=== PATIENT | female | born 1990 | race American Indian/Alaskan Native ===

== ENCOUNTER 2017-01-02 08:58 | Inpatient (IN) | payer OTHER ==
[2017-01-02 09:45] LABS: BASO # 0.1 K/uL (0.0-0.2); BASO % 0.6 % (0.0-2.0); EOS # 0.2 K/uL (0.0-0.7); EOS % 1.5 % (0.0-4.0); HEMATOCRIT 38.6 % (34.0-47.0); LYMPH # 1.7 K/uL (1.0-4.3); LYMPH % 14.5 % (20.0-40.0); MEAN CELL VOLUME 87.8 fL (81.0-99.0); MEAN CORPUSCULAR HEMOGLOBIN 29.1 pg (27.0-31.0); MEAN CORPUSCULAR HGB CONC 33.1 g/dL (33.0-37.0); MEAN PLATELET VOLUME 8.7 fL (7.2-11.7); MONO # 0.9 K/uL (0.0-0.8); MONO % 7.7 % (0.0-10.0); WHITE BLOOD COUNT 11.7 K/uL (4.8-10.8)
[2017-01-02 09:52] LABS: CHLORIDE 97 mmol/L (98-107)
[2017-01-02 09:53] LABS: POTASSIUM 3.5 mmol/L (3.6-5.2); SODIUM 138 mmol/L (132-148)
[2017-01-02] MEDS ORDERED: Albuterol-Ipratrop 3 mg / 0.5 (3 ml) UD INH STA (09:55)
[2017-01-02] MEDS ORDERED: Sodium Chloride 0.9% 1,000 ML IV ONE (09:55)
[2017-01-02 09:56] LABS: ALB/GLOB RATIO 0.9 (1.0-2.1); ALKALINE PHOSPHATASE 85 U/L (38-126); ALT/SGPT 21 U/L (9-52); AST/SGOT 25 U/L (14-36); BLOOD UREA NITROGEN 8 mg/dL (7-17); CARBON DIOXIDE 26 mmol/L (22-30); GFR AFRICAN-AMERICAN > 60; GLUCOSE,RANDOM 83 mg/dL (65-105); TOTAL PROTEIN 9.7 g/dL (6.3-8.3)
[2017-01-02] MEDS ORDERED: Sodium Chloride 0.9% 1,000 ML ONE (09:56)
[2017-01-02] MEDS ORDERED: Albuterol-Ipratrop 3 mg / 0.5 (3 ml) UD ONE (09:56)
[2017-01-02 09:57] LABS: CALCIUM 9.6 mg/dl (8.6-10.4)
--- NOTE | 2017-01-02 10:21 | C.PDOC ---
History Of Present Illness 26 y/o female, currently breast-feeding her 1 year old, c/o cough with yellow and white sputum for 2 weeks, progressively getting worse, associated with SOB. Patient reports chills. Denies fevers. Denies smoking, travel, or sick contacts. Time Seen by Provider: 01/02/17 09:22 Chief Complaint (Nursing): Cough, Cold, Congestion History Per: Patient History/Exam Limitations: no limitations Onset/Duration Of Symptoms: Persistent Current Symptoms Are (Timing): Worse Associated Symptoms: Chills, Cough, Sputum. denies: Fever, Neck Pain, Vomiting Ear Symptoms: Bilateral: None Recent travel outside of the [place]: No Past Medical History Reviewed: Historical Data, Nursing Documentation, Vital Signs Vital Signs: Last Vital Signs Temp 98.2 F 01/02/17 15:00 Pulse 75 01/02/17 15:00 Resp 20 01/02/17 15:00 BP 107/67 01/02/17 15:00 Pulse Ox 96 01/02/17 15:00 - Medical History PMH: No Chronic Diseases Family History: States: Unknown Family Hx - Social History Hx Tobacco Use: No Hx Alcohol Use: No Hx Substance Use: No - Immunization History Hx Tetanus Toxoid Vaccination: No Hx Influenza Vaccination: No Hx Pneumococcal Vaccination: No Review Of Systems Constitutional: Positive for: Chills. Negative for: Fever Cardiovascular: Negative for: Palpitations Respiratory: Positive for: Cough, Shortness of Breath, Pleuritic Pain, Sputum Gastrointestinal: Negative for: Nausea, Vomiting Skin: Positive for: Lesions (left side bridge of nose). Negative for: Rash Physical Exam - Physical Exam Appears: Non-toxic, Other (thin female, appears uncomfortable, coughing persistently ) Skin: Warm, Dry, Other (pustule left side bridge of nose) Head: Atraumatic, Normacephalic Ear(s): Bilateral: Normal Oral Mucosa: Moist Throat: Normal, No Erythema, No Exudate Neck: Supple Chest: Symmetrical Cardiovascular: Rhythm Regular Respiratory: Decreased Breath Sounds (decreased breath sounds on right vs. left) , No Wheezing Gastrointestinal/Abdominal: Soft, No Tenderness Back: Normal Inspection Extremity: Normal ROM Neurological/Psych: Oriented x3, Normal Speech, Normal Cognition ED Course And Treatment - Laboratory Results Result Diagrams: 01/02/17 09:39 01/02/17 09:39 O2 Sat by Pulse Oximetry: 93 - Other Rad Chest X-Ray X-Ray: Viewed By Me, Read By Radiologist Interpretation: Accession No. : [id number]. Patient Name / ID : RODRIGO BURLESON / [id number]. Exam Date : 01/02/2017 10:03:23 ( Approved ). Study Comment : Sex / Age : F / 26Y. Creator : Viviana Stewart MD. Dictator : Viviana Stewart MD. Generating Station Mechanic : Proof Machine Operator : Viviana Stewart MD. Approver2 : Report Date : 01/02/2017 13:37:47. My Comment : . HISTORY: cough 2 weeks, sat 93, dec bs right side. COMPARISON: Chest x-ray performed . TECHNIQUE: Chest PA and lateral. FINDINGS: LUNGS: Biapical pleural thickening. Extensive opacity involving the right lower and middle lobe worrisome for pneumonia. Left basilar atelectasis/infiltrate. PLEURA: No significant pleural effusion identified. No definite pneumothorax . CARDIOVASCULAR: Heart size appears within normal limits. OSSEOUS STRUCTURES: No acute osseous abnormality identified. VISUALIZED UPPER ABDOMEN: Unremarkable. OTHER FINDINGS: None. IMPRESSION: Extensive opacity involving the right lower and middle lobe worrisome for pneumonia. Recommend follow-up to resolution. Left basilar atelectasis/infiltrate. Biapical pleural thickening. Medical Decision Making Medical Decision Making: CxR, labs, UA ordered and reviewed. IVFs, Zithromax, Rocephin given Case discussed with Dr. Carlisle who agrees upon plan of admission. Disposition Discussed With : Yadiel Carlisle Doctor Will See Patient In The: Hospital - Disposition Disposition: HOSPITALIZED Disposition Time: 12:16 Condition: GOOD - Clinical Impression Clinical Impression: Pneumonia, Pleural effusion - PA / CLASSIFICATION COUNSELOR / Resident Statement MD/DO has reviewed & agrees with the documentation as recorded. - Scribe Statement The provider has reviewed the documentation as recorded by the Scribe SM All medical record entries made by the Scribe were at my direction and personally dictated by me. I have reviewed the chart and agree that the record accurately reflects my personal performance of the history, physical exam, medical decision making, and the department course for this patient. I have also personally directed, reviewed, and agree with the discharge instructions and disposition.
[2017-01-02] MEDS ORDERED: cefTRIAXone IV 1 gm in Dextros 50 ML IV STA (10:34)
[2017-01-02] MEDS ORDERED: cefTRIAXone IV 1 gm in Dextros 50 ML IVPB ONE (10:43)
[2017-01-02] MEDS ORDERED: Azithromycin 500 MG in Sodium Chloride 0.9% 250 ML IVPB SCH (11:00)
[2017-01-02] MEDS ORDERED: Azithromycin 500 MG in Sodium Chloride 0.9% 250 ML IVPB STA (11:07)
[2017-01-02 12:50] LABS: RBC URINE 2 /hpf (0-3); URINE BILIRUBIN NEGATIVE (NEGATIVE); URINE BLOOD NEGATIVE (NEGATIVE); URINE COLOR Yellow (YELLOW); URINE GLUCOSE (UA) NORMAL (Normal); URINE KETONE NEGATIVE (NEGATIVE); URINE LEUKOCYTE ESTERASE TRACE Leu/uL (Negative); URINE PROTEIN NEGATIVE (NEGATIVE); WBC URINE 4 /hpf (0-5)
--- NOTE | 2017-01-02 13:40 | RAD ---
HISTORY: cough 2 weeks, sat 93, dec bs right side COMPARISON: Chest x-ray performed 07/16/13 TECHNIQUE: Chest PA and lateral FINDINGS: LUNGS: Biapical pleural thickening. Extensive opacity involving the right lower and middle lobe worrisome for pneumonia. Left basilar atelectasis/infiltrate. PLEURA: No significant pleural effusion identified. No definite pneumothorax . CARDIOVASCULAR: Heart size appears within normal limits. OSSEOUS STRUCTURES: No acute osseous abnormality identified. VISUALIZED UPPER ABDOMEN: Unremarkable. OTHER FINDINGS: None. IMPRESSION: Extensive opacity involving the right lower and middle lobe worrisome for pneumonia. Recommend follow-up to resolution. Left basilar atelectasis/infiltrate. Biapical pleural thickening.
--- NOTE | 2017-01-02 14:56 | CP.PCM.HP ---
History of Present Illness - History of Present Illness History of Present Illness: CC: cough, cold, congestion, shortness of breath HPI:26 y/o AA female with no significant PMH currently breast-feeding her 1 year old, c/o cough with yellow and white sputum for 2 weeks, progressively getting worse, associated with SOB, anorexia, malaise, generalized fatigue. Patient reports chills. Denies fevers. Denies smoking, travel, or sick contacts. Present on Admission - Present on Admission Any Indicators Present on Admission: Yes Review of Systems - Review of Systems Systems not reviewed;Unavailable: Acuity of Condition - Constitutional Constitutional: Chills, Fatigue, Lethargy, Malaise. absent: As Per HPI, Anorexia, Daytime Sleepiness, Excessive Sweating, Fever, Frequent Falls, Headache, Increased Appetite, Night Sweats, Snoring, Sleep Apnea, Weight Gain, Weight Loss, Weakness, Other - EENT Eyes: absent: As Per HPI, Blind Spots, Blurred Vision, Change in Vision, Decreased Night Vision, Diplopia, Discharge, Dry Eye, Exophthalmos, Floaters, Irritation, Itchy Eyes, Loss of Peripheral Vision, Pain, Photophobia, Requires Corrective Lenses, Sees Flashes, Spots in Vision, Tunnel Vision, Other Visual Disturbances, Loss of Vision, Other Ears: absent: As Per HPI, Decreased Hearing, Ear Discharge, Ear Pain, Tinnitus, Abnormal Hearing, Disequilibrium, Dizziness, Other Nose/Mouth/Throat: Nasal Congestion, Nasal Obstruction, Nasal Trauma, Sinus Pain , Sore Throat - Breasts Breasts: absent: As Per HPI, Change in Shape, Mass, Pain, Nipple Discharge, Nipple Inversion, Skin Changes, Swelling, Other - Cardiovascular Cardiovascular: absent: As Per HPI, Acrocyanosis, Chest Pain, Chest Pain at Rest , Chest Pain with Activity, Claudication, Diaphoresis, Dyspnea, Dyspnea on Exertion, Edema, Irregular Heart Rhythm, Pain Radiating to Arm/Neck/Jaw, Leg Edema, Leg Ulcers, Lightheadedness, Orthopnea, Palpitations, Paroxysmal Nocturnal Dyspnea, Pedal Edema, Radiating Pain, Rapid Heart Rate, Slow Heart Rate, Syncope, Other - Respiratory Respiratory: Cough, Dyspnea, Dyspnea on Exertion, Chest Congestion - Gastrointestinal Gastrointestinal: absent: As Per HPI, Abdominal Pain, Belching, Bloating, Change in Bowel Habits, Change in Stool Character, Coffee Ground Emesis, Constipation, Cramping, Diarrhea, Dyspepsia, Dysphagia, Early Satiety, Excessive Flatus, Fecal Incontinence, Heartburn, Hematemesis, Hematochezia, Loose Stools, Melena, Nausea, Odynophagia, Temesmus, Vomiting, Other - Genitourinary Genitourinary: absent: As Per HPI, Change in Urinary Stream, Difficulty Urinating, Dysuria, Flank Pain, Hematuria, Pyuria, Nocturia, Urinary Incontinence, Urinary Frequency, Urinary Hesitance, Urinary Urgency, Voiding Freq/Small Amts, Freq UTI, Hx Renal/Bladder Calculi, Hx /Renal Surgery, Bladder Distension, Other - Musculoskeletal Musculoskeletal: absent: As Per HPI, Abnormal Gait, Arthralgias, Atrophy, Back Pain, Deformity, Joint Swelling, Limited Range of Motion, Loss of Height, Muscle Cramps, Muscle Weakness, Myalgias, Neck Pain, Numbness, Radiating Pain into Limb, Stiffness, Tingling, Other - Integumentary Integumentary: absent: As Per HPI, Acne, Alopecia, Bleeding Lesions, Change in Hair, Change in Nails, Change in Pigmentation, Changing Lesions, Dry Skin, Erythema, Furuncle, Hirsutism, Lesions, New Lesions, Non-Healing Lesions, Photosensitivity, Pruritus, Rash, Skin Pain, Skin Ulcer, Sores, Striae, Swelling , Unusual Bruising, Wounds, Jaundice, Other Past Patient History - Past Medical History & Family History Past Medical History?: No - Past Social History Smoking Status: Never Smoked - MUSCULOSKELETAL/RHEUMATOLOGICAL Hx Falls: No - PSYCHIATRIC Hx Substance Use: No - SURGICAL HISTORY Hx Surgeries: Yes Hx Section: Yes - ANESTHESIA Hx Anesthesia: No Hx Anesthesia Reactions: No Meds Allergies/Adverse Reactions: Allergies Allergy/AdvReac Type Severity Reaction Status Date / Time No Known Allergies Allergy Verified 01/02/17 09:05 Physical Exam - Constitutional Appears: No Acute Distress Additional comments: younge thin female apperas in mild distress, coughing - Head Exam Head Exam: ATRAUMATIC, NORMAL INSPECTION, NORMOCEPHALIC - Eye Exam Eye Exam: EOMI, Normal appearance, PERRL Pupil Exam: NORMAL ACCOMODATION, PERRL - ENT Exam ENT Exam: Mucous Membranes Moist, Normal Exam - Neck Exam Neck exam: Positive for: Normal Inspection - Respiratory Exam Respiratory Exam: Decreased Breath Sounds, Rhonchi, Wheezes - Cardiovascular Exam Cardiovascular Exam: REGULAR RHYTHM - GI/Abdominal Exam GI & Abdominal Exam: Normal Bowel Sounds, Soft. absent: Tenderness - Neurological Exam Neurological exam: Alert, CN II-XII Intact, Normal Gait, Oriented x3 - Psychiatric Exam Psychiatric exam: Anxious - Skin Skin Exam: Abrasion, Dry, Intact, Normal Color, Warm Additional comments: pustule on bridge of nose dry poor turgor Results - Vital Signs Recent Vital Signs: Last Vital Signs Temp 98.7 F 01/02/17 13:40 Pulse 75 01/02/17 13:40 Resp 20 01/02/17 13:40 BP 103/66 01/02/17 13:40 Pulse Ox 96 01/02/17 13:40 - Labs Result Diagrams: 01/03/17 07:08 01/03/17 07:08 Labs: Laboratory Results - last 24 hr 01/02/17 01/02/17 01/02/17 09:39 09:39 10:49 WBC 11.7 H RBC 4.40 Hgb 12.8 D Hct 38.6 MCV 87.8 MCH 29.1 MCHC 33.1 RDW 13.0 Plt Count 246 MPV 8.7 Neut % (Auto) 75.7 H Lymph % (Auto) 14.5 L [place] % (Auto) 7.7 Eos % (Auto) 1.5 Baso % (Auto) 0.6 Neut # 8.9 H Lymph # 1.7 [place] # 0.9 H Eos # 0.2 Baso # 0.1 Sodium 138 Potassium 3.5 L Chloride 97 L Carbon Dioxide 26 Anion Gap 18 BUN 8 Creatinine 0.5 L Est GFR ( Amer) > 60 Est GFR (Non-Af Amer) > 60 Random Glucose 83 Calcium 9.6 Total Bilirubin 2.0 H AST 25 ALT 21 Alkaline Phosphatase 85 Total Protein 9.7 H Albumin 4.6 Globulin 5.0 H Albumin/Globulin Ratio 0.9 L Urine Color Urine Clarity Urine pH Ur Specific [place] Urine Protein Urine Glucose (UA) Urine Ketones Urine Blood Urine Nitrate Urine Bilirubin Urine Urobilinogen Ur Leukocyte Esterase Urine WBC (Auto) Urine RBC (Auto) Ur Squamous Epith Cells Urine HCG, Qual Influenza Typ A,B (EIA) Negative for flu a/b 01/02/17 12:39 WBC RBC Hgb Hct MCV MCH MCHC RDW Plt Count MPV Neut % (Auto) Lymph % (Auto) [place] % (Auto) Eos % (Auto) Baso % (Auto) Neut # Lymph # [place] # Eos # Baso # Sodium Potassium Chloride Carbon Dioxide Anion Gap BUN Creatinine Est GFR ( Amer) Est GFR (Non-Af Amer) Random Glucose Calcium Total Bilirubin AST ALT Alkaline Phosphatase Total Protein Albumin Globulin Albumin/Globulin Ratio Urine Color Yellow Urine Clarity Clear Urine pH 6.0 Ur Specific [place] 1.008 Urine Protein Negative Urine Glucose (UA) Normal Urine Ketones Negative Urine Blood Negative Urine Nitrate Negative Urine Bilirubin Negative Urine Urobilinogen 2.0 H Ur Leukocyte Esterase Trace Urine WBC (Auto) 4 Urine RBC (Auto) 2 Ur Squamous Epith Cells 1 Urine HCG, Qual Negative Influenza Typ A,B (EIA) Assessment & Plan (1) Pleural effusion Status: Acute (2) Pneumonia Assessment and Plan: Extensive opacity involving the right lower and middle lobe worrisome for pneumonia. Left basilar atelectasis/infiltrate. PLEURA: No significant pleural effusion identified. No definite pneumothorax . Extensive opacity involving the right lower and middle lobe worrisome for pneumonia. Recommend follow-up to resolution. Left basilar atelectasis/infiltrate. Biapical pleural thickening. plan: CxR, labs, UA ordered and reviewed. IVFs, Zithromax, Rocephin given Status: Acute
[2017-01-02] MEDS: Potassium Chloride 20 mEq ER Tab PO SCH (17:54)
[2017-01-02] MEDS: Albuterol-Ipratrop 3 mg / 0.5 (3 ml) UD INH SCH (19:47)
[2017-01-03] MEDS: guaiFENesin 200 mg/10 ml Syrup UD PO PRN ×2 (00:43→20:21)
[2017-01-03] MEDS: Albuterol-Ipratrop 3 mg / 0.5 (3 ml) UD INH SCH ×4 (01:25→19:46)
[2017-01-03 07:24] LABS: BASO % 0.2 % (0.0-2.0); EOS % 0.4 % (0.0-4.0); HEMATOCRIT 35.3 % (34.0-47.0); LYMPH # 0.8 K/uL (1.0-4.3); LYMPH % 6.4 % (20.0-40.0); MEAN CELL VOLUME 88.1 fL (81.0-99.0); MEAN CORPUSCULAR HEMOGLOBIN 29.2 pg (27.0-31.0); MEAN CORPUSCULAR HGB CONC 33.1 g/dL (33.0-37.0); MEAN PLATELET VOLUME 8.9 fL (7.2-11.7); MONO # 0.6 K/uL (0.0-0.8); MONO % 4.8 % (0.0-10.0); PLATELET COUNT 253 K/uL (130-400); RED CELL DISTRIBUTION WIDTH 13.1 % (11.5-14.5); WHITE BLOOD COUNT 12.4 K/uL (4.8-10.8)
[2017-01-03 08:02] LABS: CHLORIDE 97 mmol/L (98-107)
[2017-01-03 08:03] LABS: POTASSIUM 4.1 mmol/L (3.6-5.2); SODIUM 136 mmol/L (132-148)
[2017-01-03 08:05] LABS: GFR AFRICAN-AMERICAN > 60
[2017-01-03 08:06] LABS: BLOOD UREA NITROGEN 5 mg/dL (7-17); CALCIUM 9.2 mg/dl (8.6-10.4); CARBON DIOXIDE 26 mmol/L (22-30); GLUCOSE,RANDOM 95 mg/dL (65-105)
[2017-01-03] MEDS: Enoxaparin 40 mg Syringe SC SCH (09:42)
[2017-01-03] MEDS: Potassium Chloride 20 mEq ER Tab PO SCH (09:42)
[2017-01-03] MEDS: Pantoprazole 40 mg EC Tab PO SCH (09:42)
[2017-01-03] MEDS: cefTRIAXone 2 GM in Sodium Chloride 0.9% 100 ML IVPB SCH (09:43)
[2017-01-03 09:49] LABS: NEUTROPHIL 88 % (50-75); TOTAL CELLS COUNTED 100
[2017-01-03] MEDS: Azithromycin 500 MG in Sodium Chloride 0.9% 250 ML IVPB SCH (12:00)
--- NOTE | 2017-01-03 22:53 | CP.PCM.PN ---
Subjective - Date & Time of Evaluation Date of Evaluation: 01/03/17 Time of Evaluation: 20:40 - Subjective Subjective: Pt seen and examined, still c/o chest wall pain, less cough, less shortness of breath Objective - Vital Signs/Intake and Output Vital Signs (last 24 hours): Temp Pulse Resp BP Pulse Ox 98.4 F 88 20 99/59 L 95 01/03/17 16:53 01/03/17 16:53 01/03/17 16:53 01/03/17 16:53 01/03/17 16:53 Intake and Output: 01/03/17 01/04/17 18:59 06:59 Intake Total 710 300 Balance 710 300 - Medications Medications: Current Medications Acetaminophen (Tylenol 325mg Tab) 650 mg PO Q6 PRN PRN Reason: Pain, moderate (4-7) Last Admin: 01/03/17 20:19 Dose: 650 mg Albuterol/Ipratropium (Duoneb 3 Mg/0.5 Mg (3 Ml) Ud) 3 ml INH RQ6 [facility] Last Admin: 01/03/17 19:46 Dose: 3 ml Enoxaparin Sodium (Lovenox) 40 mg SC DAILY [facility] Last Admin: 01/03/17 09:42 Dose: 40 mg Guaifenesin (Robitussin) 200 mg PO Q4H PRN PRN Reason: Cough and congestion Last Admin: 01/03/17 20:21 Dose: 200 mg Ceftriaxone Sodium 2 gm/ (Sodium Chloride) 100 mls @ 100 mls/hr IVPB DAILY [facility] Last Admin: 01/03/17 09:43 Dose: 100 mls/hr Azithromycin 500 mg/ Sodium (Chloride) 250 mls @ 250 mls/hr IVPB Q24H [facility] Last Admin: 01/03/17 12:00 Dose: 250 mls/hr Pantoprazole Sodium (Protonix Ec Tab) 40 mg PO DAILY [facility] Last Admin: 01/03/17 09:42 Dose: 40 mg Pneumococcal Polyvalent Vaccine (Pneumovax 23 Vaccine) 0.5 ml IM .ONCE ONE Stop: 01/05/17 10:01 - Labs Labs: 01/03/17 07:08 01/03/17 07:08 - Constitutional Appears: No Acute Distress - Head Exam Head Exam: ATRAUMATIC, NORMAL INSPECTION, NORMOCEPHALIC - Eye Exam Eye Exam: EOMI, Normal appearance, PERRL Pupil Exam: NORMAL ACCOMODATION, PERRL - ENT Exam ENT Exam: Mucous Membranes Moist - Respiratory Exam Respiratory Exam: Decreased Breath Sounds, Rales - Cardiovascular Exam Cardiovascular Exam: REGULAR RHYTHM, +S1, +S2. absent: Murmur - GI/Abdominal Exam GI & Abdominal Exam: Soft, Normal Bowel Sounds. absent: Tenderness - Neurological Exam Neurological Exam: Alert, Awake, CN II-XII Intact, Normal Gait, Oriented x3 - Psychiatric Exam Psychiatric exam: Normal Affect, Normal Mood Assessment and Plan (1) Pleural effusion Status: Acute (2) Pneumonia Assessment & Plan: continue antibiotics Status: Acute
[2017-01-04] MEDS: Albuterol-Ipratrop 3 mg / 0.5 (3 ml) UD INH SCH ×4 (01:30→19:17)
[2017-01-04] MEDS: Enoxaparin 40 mg Syringe SC SCH ×2 (10:18→10:20)
[2017-01-04] MEDS: cefTRIAXone 2 GM in Sodium Chloride 0.9% 100 ML IVPB SCH ×2 (10:18→10:30)
[2017-01-04] MEDS: Pantoprazole 40 mg EC Tab PO SCH (10:18)
[2017-01-04] MEDS: Azithromycin 500 MG in Sodium Chloride 0.9% 250 ML IVPB SCH ×2 (10:28→11:30)
--- NOTE | 2017-01-04 15:28 | CP.PCM.CON ---
History of Present Illness - History of Present Illness History of Present Illness: Reason for consultation: Shortness of breath and cough 26-year-old female with no significant past medical history presented with 2 week history of cough productive of yellowish phlegm associated with worsening shortness of breath. Denies fevers chills, denies chest pain. Denies night sweats, denies weight loss, denies hemoptysis. Cough is bored during the day and at night and shortness of breath is mostly on exertion. Review of Systems - Review of Systems All systems: reviewed and no additional remarkable complaints except (Shortness of breath and cough) Past Patient History - Past Medical History & Family History Past Medical History?: No - Past Social History Smoking Status: Never Smoked - MUSCULOSKELETAL/RHEUMATOLOGICAL Hx Falls: No - PSYCHIATRIC Hx Substance Use: No - SURGICAL HISTORY Hx Surgeries: Yes Hx Section: Yes - ANESTHESIA Hx Anesthesia: No Hx Anesthesia Reactions: No Meds Allergies/Adverse Reactions: Allergies Allergy/AdvReac Type Severity Reaction Status Date / Time No Known Allergies Allergy Verified 01/02/17 09:05 - Medications Medications: Current Medications Acetaminophen (Tylenol 325mg Tab) 650 mg PO Q6 PRN PRN Reason: Pain, moderate (4-7) Last Admin: 01/03/17 20:19 Dose: 650 mg Albuterol/Ipratropium (Duoneb 3 Mg/0.5 Mg (3 Ml) Ud) 3 ml INH RQ6 [facility] Last Admin: 01/04/17 13:32 Dose: Not Given Enoxaparin Sodium (Lovenox) 40 mg SC DAILY [facility] Last Admin: 01/04/17 10:20 Dose: Not Given Guaifenesin (Robitussin) 200 mg PO Q4H PRN PRN Reason: Cough and congestion Last Admin: 01/03/17 20:21 Dose: 200 mg Ceftriaxone Sodium 2 gm/ (Sodium Chloride) 100 mls @ 100 mls/hr IVPB DAILY [facility] Last Admin: 01/04/17 10:30 Dose: Not Given Azithromycin 500 mg/ Sodium (Chloride) 250 mls @ 250 mls/hr IVPB Q24H [facility] Last Admin: 01/04/17 11:30 Dose: Not Given Pantoprazole Sodium (Protonix Ec Tab) 40 mg PO DAILY [facility] Last Admin: 01/04/17 10:18 Dose: 40 mg Pneumococcal Polyvalent Vaccine (Pneumovax 23 Vaccine) 0.5 ml IM .ONCE ONE Stop: 01/05/17 10:01 Physical Exam - Head Exam Head Exam: ATRAUMATIC, NORMOCEPHALIC - Eye Exam Eye Exam: Normal appearance - ENT Exam ENT Exam: Mucous Membranes Moist - Neck Exam Neck exam: Positive for: Normal Inspection - Respiratory Exam Respiratory Exam: Decreased Breath Sounds Additional comments: Patient has reduced breath sounds right base - Cardiovascular Exam Cardiovascular Exam: REGULAR RHYTHM - GI/Abdominal Exam GI & Abdominal Exam: Normal Bowel Sounds, Soft - Extremities Exam Extremities exam: Positive for: normal inspection - Neurological Exam Neurological exam: Alert, Oriented x3 Results - Vital Signs Recent Vital Signs: Last Vital Signs Temp 99.2 F 01/04/17 00:50 Pulse 88 01/04/17 00:50 Resp 20 01/04/17 00:50 BP 97/65 L 01/04/17 00:50 Pulse Ox 94 L 01/04/17 00:50 - Labs Result Diagrams: 01/03/17 07:08 01/03/17 07:08 Assessment & Plan (1) Pneumonia Status: Acute Comment: Chest x-ray consistent with right lower lung infiltrate. CAT scan of the chest without contrast. IV antibiotics. Follow-up culture sensitivity. Influenza negative
--- NOTE | 2017-01-04 18:11 | CT ---
PROCEDURE: CT Chest without contrast HISTORY: pleural effusion COMPARISON: None. TECHNIQUE: Contiguous axial images were obtained through the chest without intravenous contrast enhancement. Sagittal and coronal reconstructions were performed. Radiation dose (DLP): 147.6 mGy-cm. This CT exam was performed using one or more of the following dose reduction techniques: Automated exposure control, adjustment of the mA and/or kV according to patient size, and/or use of iterative reconstruction technique. FINDINGS: LUNGS: There is right middle and lower lobes consolidations contain air bronchogram suspicious for pneumonia versus aspiration. MEDIASTINUM: Unremarkable thoracic aorta. No aneurysm. Normal sized heart. Main pulmonary artery is mildly enlarged. No lymphadenopathy. Markedly dilated esophagus contains food debris cyst. Findings suspicious for achalasia or distal esophageal stricture versus school or dermal. PLEURA: There is a small size right pleural effusion seen. BONES: No fracture. No destructive lesion. UPPER ABDOMEN: Grossly unremarkable. OTHER FINDINGS: None. IMPRESSION: Markedly dilated esophagus contains food debris noted. The differential considerations include achalasia ,distal esophagus/ EG junction stenosis or scleroderma. Please correlate clinically. Large airspace consolidations contain air bronchogram noted at the right middle and lower lobes suspicious for pneumonia versus aspiration. Small right pleural effusion.
[2017-01-04] MEDS ORDERED: Clindamycin 600mg/50ml NS 600 MG/50 ML BAG IVPB SCH (19:00)
--- NOTE | 2017-01-04 21:18 | CP.PCM.PN ---
Subjective - Date & Time of Evaluation Date of Evaluation: 01/04/17 Time of Evaluation: 20:30 - Subjective Subjective: Pt is coughing, wheezing, afberile on antibiotics, she has no Iv access Objective - Vital Signs/Intake and Output Vital Signs (last 24 hours): Temp Pulse Resp BP Pulse Ox 98.5 F 74 20 97/63 L 96 01/04/17 15:00 01/04/17 15:00 01/04/17 15:00 01/04/17 15:00 01/04/17 15:00 Intake and Output: 01/04/17 01/05/17 18:59 06:59 Intake Total 200 Balance 200 - Medications Medications: Current Medications Acetaminophen (Tylenol 325mg Tab) 650 mg PO Q6 PRN PRN Reason: Pain, moderate (4-7) Last Admin: 01/03/17 20:19 Dose: 650 mg Albuterol/Ipratropium (Duoneb 3 Mg/0.5 Mg (3 Ml) Ud) 3 ml INH RQ6 [facility] Last Admin: 01/04/17 19:17 Dose: 3 ml Clindamycin HCl (Cleocin) 300 mg PO Q6H [facility] Enoxaparin Sodium (Lovenox) 40 mg SC DAILY [facility] Last Admin: 01/04/17 10:20 Dose: Not Given Guaifenesin (Robitussin) 200 mg PO Q4H PRN PRN Reason: Cough and congestion Last Admin: 01/03/17 20:21 Dose: 200 mg Ceftriaxone Sodium 2 gm/ (Sodium Chloride) 100 mls @ 100 mls/hr IVPB DAILY [facility] Last Admin: 01/04/17 10:30 Dose: Not Given Pantoprazole Sodium (Protonix Ec Tab) 40 mg PO DAILY [facility] Last Admin: 01/04/17 10:18 Dose: 40 mg Pneumococcal Polyvalent Vaccine (Pneumovax 23 Vaccine) 0.5 ml IM .ONCE ONE Stop: 01/05/17 10:01 - Labs Labs: 01/03/17 07:08 01/03/17 07:08 - Constitutional Appears: No Acute Distress - Head Exam Head Exam: ATRAUMATIC, NORMAL INSPECTION, NORMOCEPHALIC - Eye Exam Eye Exam: EOMI, Normal appearance, PERRL Pupil Exam: NORMAL ACCOMODATION, PERRL - Respiratory Exam Respiratory Exam: Decreased Breath Sounds, Rales, Wheezes - Cardiovascular Exam Cardiovascular Exam: REGULAR RHYTHM, +S1, +S2. absent: Murmur - GI/Abdominal Exam GI & Abdominal Exam: Soft, Normal Bowel Sounds. absent: Tenderness Assessment and Plan (1) Pleural effusion Status: Acute (2) Pneumonia Assessment & Plan: Chest x-ray consistent with right lower lung infiltrate. CAT scan of the chest without contrast. IV antibiotics. Follow-up culture sensitivity. Influenza negative Status: Acute
[2017-01-05] MEDS: Albuterol-Ipratrop 3 mg / 0.5 (3 ml) UD INH SCH ×4 (02:57→19:17)
[2017-01-05] MEDS ORDERED: Influenza Vaccine 60 mcg/0.5 mL SYR (4YR UP) IM ONE (10:00)
[2017-01-05] MEDS ORDERED: Pneumococcal 23-Valent Vaccine IM ONE (10:00)
[2017-01-05] MEDS: Pantoprazole 40 mg EC Tab PO SCH (10:18)
[2017-01-05] MEDS: Enoxaparin 40 mg Syringe SC SCH (10:18)
[2017-01-05] MEDS: cefTRIAXone 2 GM in Sodium Chloride 0.9% 100 ML IVPB SCH (10:21)
[2017-01-05 17:08] LABS: LEGIONELLA AG URINE NEGATIVE (NEGATIVE)
--- NOTE | 2017-01-05 17:47 | CP.PCM.PN ---
Subjective - Date & Time of Evaluation Date of Evaluation: 01/05/17 Time of Evaluation: 13:00 - Subjective Subjective: Patient seen and examined. Still complaining of cough Afebrile CT of the chest showed dilated esophagus Patient states she had dilatation of the gastroesophageal sphincter 2-3 years ago Right lung infiltrate consistent with aspiration pneumonia Continue antibiotics Patient seen by GI Objective - Vital Signs/Intake and Output Vital Signs (last 24 hours): Temp Pulse Resp BP Pulse Ox 98.6 F 84 20 100/63 96 01/05/17 15:00 01/05/17 15:00 01/05/17 15:00 01/05/17 15:00 01/05/17 15:00 Intake and Output: 01/05/17 01/05/17 06:59 18:59 Intake Total 700 Balance 700 - Medications Medications: Current Medications Acetaminophen (Tylenol 325mg Tab) 650 mg PO Q6 PRN PRN Reason: Pain, moderate (4-7) Last Admin: 01/05/17 12:57 Dose: 650 mg Albuterol/Ipratropium (Duoneb 3 Mg/0.5 Mg (3 Ml) Ud) 3 ml INH RQ6 [facility] Last Admin: 01/05/17 13:24 Dose: 3 ml Clindamycin HCl (Cleocin) 300 mg PO Q6H [facility] Last Admin: 01/05/17 14:40 Dose: 300 mg Enoxaparin Sodium (Lovenox) 40 mg SC DAILY [facility] Last Admin: 01/05/17 10:18 Dose: Not Given Guaifenesin (Robitussin) 200 mg PO Q4H PRN PRN Reason: Cough and congestion Last Admin: 01/03/17 20:21 Dose: 200 mg Ceftriaxone Sodium 2 gm/ (Sodium Chloride) 100 mls @ 100 mls/hr IVPB DAILY [facility] Last Admin: 01/05/17 10:21 Dose: Not Given Pantoprazole Sodium (Protonix Ec Tab) 40 mg PO DAILY [facility] Last Admin: 01/05/17 10:18 Dose: 40 mg - Labs Labs: 01/03/17 07:08 01/03/17 07:08 - Head Exam Head Exam: ATRAUMATIC, NORMOCEPHALIC - Eye Exam Eye Exam: Normal appearance - ENT Exam ENT Exam: Mucous Membranes Moist - Neck Exam Neck Exam: Normal Inspection - Respiratory Exam Respiratory Exam: Rales - Cardiovascular Exam Cardiovascular Exam: REGULAR RHYTHM - GI/Abdominal Exam GI & Abdominal Exam: Soft, Normal Bowel Sounds - Extremities Exam Extremities Exam: Normal Inspection Assessment and Plan (1) Aspiration pneumonia Assessment & Plan: Aspiration pneumonia secondary to achalasia Continue antibiotics GI intervention Diet changed to pure Status: Acute
--- NOTE | 2017-01-05 21:38 | CP.PCM.PN ---
Subjective - Date & Time of Evaluation Date of Evaluation: 01/05/17 Time of Evaluation: 19:00 - Subjective Subjective: PT HAS LARGE ASPIRATION PNEUMONIA ON RIGHT SIDE AND ACHALASIA , FOOD PARTICLES IN CHEST PT IS FOR GI EVAL Objective - Vital Signs/Intake and Output Vital Signs (last 24 hours): Temp Pulse Resp BP Pulse Ox 98.6 F 84 20 100/63 96 01/05/17 15:00 01/05/17 15:00 01/05/17 15:00 01/05/17 15:00 01/05/17 15:00 - Medications Medications: Current Medications Acetaminophen (Tylenol 325mg Tab) 650 mg PO Q6 PRN PRN Reason: Pain, moderate (4-7) Last Admin: 01/05/17 12:57 Dose: 650 mg Albuterol/Ipratropium (Duoneb 3 Mg/0.5 Mg (3 Ml) Ud) 3 ml INH RQ6 [facility] Last Admin: 01/05/17 19:17 Dose: 3 ml Clindamycin HCl (Cleocin) 300 mg PO Q6H [facility] Last Admin: 01/05/17 19:31 Dose: 300 mg Enoxaparin Sodium (Lovenox) 40 mg SC DAILY [facility] Last Admin: 01/05/17 10:18 Dose: Not Given Guaifenesin (Robitussin) 200 mg PO Q4H PRN PRN Reason: Cough and congestion Last Admin: 01/03/17 20:21 Dose: 200 mg Ceftriaxone Sodium 2 gm/ (Sodium Chloride) 100 mls @ 100 mls/hr IVPB DAILY [facility] Last Admin: 01/05/17 10:21 Dose: Not Given Pantoprazole Sodium (Protonix Ec Tab) 40 mg PO DAILY [facility] Last Admin: 01/05/17 10:18 Dose: 40 mg - Labs Labs: 01/03/17 07:08 01/03/17 07:08 - Constitutional Appears: No Acute Distress - Head Exam Head Exam: ATRAUMATIC, NORMAL INSPECTION, NORMOCEPHALIC - Eye Exam Eye Exam: EOMI, Normal appearance, PERRL Pupil Exam: NORMAL ACCOMODATION, PERRL - Respiratory Exam Respiratory Exam: Decreased Breath Sounds, Rales, Wheezes, NORMAL BREATHING PATTERN - Cardiovascular Exam Cardiovascular Exam: REGULAR RHYTHM, +S1, +S2. absent: Murmur - GI/Abdominal Exam GI & Abdominal Exam: Soft, Normal Bowel Sounds. absent: Tenderness - Neurological Exam Neurological Exam: Alert, Awake, CN II-XII Intact, Normal Gait, Oriented x3 - Psychiatric Exam Psychiatric exam: Normal Affect, Normal Mood Assessment and Plan (1) Pleural effusion Status: Acute (2) Pneumonia Assessment & Plan: CONTINUE ANTIBIOTICS Status: Acute (3) Achalasia of cardia Assessment & Plan: GI EVAL Status: Acute
--- NOTE | 2017-01-05 21:39 | CP.PCM.CON ---
History of Present Illness - History of Present Illness History of Present Illness: Reason for consult: Achalasia Consult to us was originally called by Dr. Choe. Later an additional consult was placed to Dr. Arguelles after we have already seen the patient. CC: Achalasia HPI: 26 year old female with h/o achalasia previously treated by pneumatic dilation about 5 years ago at [facility] she says now admitted with RLL pneumonia. She says that she has noticed the symptoms of dysphagia coming back over the course of the past several months. She has solid and liquid dysphagia, weight loss of up to 40 lbs, intermittent regurgitation. She denies chest pain or fever. She does complain of cough and mild sob. She has no h/o manometry. There was no follow up after the initial treatment. PMHx: Achalasia PSHx Pneumatic dilation FHX no family history of GI disease SHx non smoker/drinker ROS A comprehensive review of systems was performed and was negative apart from HPI Past Patient History - Past Medical History & Family History Past Medical History?: No - Past Social History Smoking Status: Never Smoked - MUSCULOSKELETAL/RHEUMATOLOGICAL Hx Falls: No - PSYCHIATRIC Hx Substance Use: No - SURGICAL HISTORY Hx Surgeries: Yes Hx Section: Yes - ANESTHESIA Hx Anesthesia: No Hx Anesthesia Reactions: No Meds Allergies/Adverse Reactions: Allergies Allergy/AdvReac Type Severity Reaction Status Date / Time No Known Allergies Allergy Verified 01/02/17 09:05 - Medications Medications: Current Medications Acetaminophen (Tylenol 325mg Tab) 650 mg PO Q6 PRN PRN Reason: Pain, moderate (4-7) Last Admin: 01/05/17 12:57 Dose: 650 mg Albuterol/Ipratropium (Duoneb 3 Mg/0.5 Mg (3 Ml) Ud) 3 ml INH RQ6 [facility] Last Admin: 01/05/17 19:17 Dose: 3 ml Clindamycin HCl (Cleocin) 300 mg PO Q6H [facility] Last Admin: 01/05/17 19:31 Dose: 300 mg Enoxaparin Sodium (Lovenox) 40 mg SC DAILY [facility] Last Admin: 01/05/17 10:18 Dose: Not Given Guaifenesin (Robitussin) 200 mg PO Q4H PRN PRN Reason: Cough and congestion Last Admin: 10/13/17 20:21 Dose: 200 mg Ceftriaxone Sodium 2 gm/ (Sodium Chloride) 100 mls @ 100 mls/hr IVPB DAILY [facility] Last Admin: 01/05/17 10:21 Dose: Not Given Pantoprazole Sodium (Protonix Ec Tab) 40 mg PO DAILY [facility] Last Admin: 01/05/17 10:18 Dose: 40 mg Physical Exam - Constitutional Appears: No Acute Distress, Chronically Ill Additional comments: thin - Head Exam Head Exam: ATRAUMATIC, NORMOCEPHALIC - Eye Exam Eye Exam: Normal appearance, PERRL. absent: Scleral icterus - ENT Exam ENT Exam: Mucous Membranes Moist, Normal Oropharynx - Respiratory Exam Respiratory Exam: NORMAL BREATHING PATTERN. absent: Wheezes, Respiratory Distress, Stridor - Cardiovascular Exam Cardiovascular Exam: REGULAR RHYTHM, +S1, +S2 - GI/Abdominal Exam GI & Abdominal Exam: Soft. absent: Guarding, Mass, Tenderness - Extremities Exam Extremities exam: Positive for: normal capillary refill. Negative for: pedal edema - Neurological Exam Neurological exam: Alert, Normal Gait, Oriented x3 - Psychiatric Exam Psychiatric exam: Normal Affect, Normal Mood - Skin Skin Exam: Dry, Normal Color, Warm Results - Vital Signs Recent Vital Signs: Last Vital Signs Temp 98.6 F 01/05/17 15:00 Pulse 84 01/05/17 15:00 Resp 20 01/05/17 15:00 BP 100/63 01/05/17 15:00 Pulse Ox 96 01/05/17 15:00 - Labs Result Diagrams: 01/03/17 07:08 01/03/17 07:08 Labs: Laboratory Results - last 24 hr 01/04/17 17:00 Ur L.pneumophila Ag Negative Assessment & Plan - Assessment and Plan (Free Text) Assessment: 26 year old female with h/o achalasia s/p prior pneumatic dilation admitted with RLL pneumonia. 1. Achalasia Plan: -discussed options with the patient including repeat pneumatic dilation and heller myotomy -she would like to pursue an outpatient heller myotomy for more definitive treatment considering her young age -she will follow up in [place] with her previously established GI physician she says -in the interim, would recommend strict aspiration precautions with the HOB at 45 degrees -continue antibiotics for pneumonia -will sign off at this time - Date & Time Date: 01/05/17 Time: 21:45
[2017-01-06] MEDS: Albuterol-Ipratrop 3 mg / 0.5 (3 ml) UD INH SCH ×4 (01:30→19:20)
[2017-01-06] MEDS: Pantoprazole 40 mg EC Tab PO SCH (10:55)
[2017-01-06] MEDS: Enoxaparin 40 mg Syringe SC SCH (10:55)
[2017-01-06] MEDS: cefTRIAXone 2 GM in Sodium Chloride 0.9% 100 ML IVPB SCH (10:56)
[2017-01-06 11:18] LABS: BASO % 0.2 % (0.0-2.0); EOS # 0.2 K/uL (0.0-0.7); EOS % 2.2 % (0.0-4.0); HEMATOCRIT 37.4 % (34.0-47.0); LYMPH # 1.3 K/uL (1.0-4.3); LYMPH % 13.1 % (20.0-40.0); MEAN CELL VOLUME 87.5 fL (81.0-99.0); MEAN CORPUSCULAR HEMOGLOBIN 29.2 pg (27.0-31.0); MEAN CORPUSCULAR HGB CONC 33.4 g/dL (33.0-37.0); MEAN PLATELET VOLUME 8.8 fL (7.2-11.7); MONO # 0.6 K/uL (0.0-0.8); MONO % 6.2 % (0.0-10.0); NRBC % 0.1 % (0.0-2.0); WHITE BLOOD COUNT 9.6 K/uL (4.8-10.8)
[2017-01-06 11:46] LABS: CHLORIDE 96 mmol/L (98-107); POTASSIUM 3.4 mmol/L (3.6-5.2); SODIUM 135 mmol/L (132-148)
[2017-01-06 11:49] LABS: GFR AFRICAN-AMERICAN > 60
[2017-01-06 11:50] LABS: BLOOD UREA NITROGEN 5 mg/dL (7-17); CALCIUM 9.3 mg/dl (8.6-10.4); CARBON DIOXIDE 28 mmol/L (22-30); GLUCOSE,RANDOM 80 mg/dL (65-105)
--- NOTE | 2017-01-06 11:50 | CP.PCM.PN ---
Subjective - Date & Time of Evaluation Date of Evaluation: 01/06/17 Time of Evaluation: 09:30 - Subjective Subjective: patient seen and examined. Still complaining of cough Afebrile No chest pain Seen by gastroenterology Objective - Vital Signs/Intake and Output Vital Signs (last 24 hours): Temp Pulse Resp BP Pulse Ox 98.7 F 88 20 105/65 98 01/06/17 07:27 01/06/17 07:27 01/06/17 07:27 01/06/17 07:27 01/06/17 07:27 Intake and Output: 01/06/17 01/06/17 06:59 18:59 Intake Total 250 Balance 250 - Medications Medications: Current Medications Acetaminophen (Tylenol 325mg Tab) 650 mg PO Q6 PRN PRN Reason: Pain, moderate (4-7) Last Admin: 01/05/17 12:57 Dose: 650 mg Albuterol/Ipratropium (Duoneb 3 Mg/0.5 Mg (3 Ml) Ud) 3 ml INH RQ6 [facility] Last Admin: 01/06/17 07:10 Dose: 3 ml Clindamycin HCl (Cleocin) 300 mg PO Q6H [facility] Last Admin: 01/06/17 08:20 Dose: 300 mg Enoxaparin Sodium (Lovenox) 40 mg SC DAILY [facility] Last Admin: 01/06/17 10:55 Dose: Not Given Guaifenesin (Robitussin) 200 mg PO Q4H PRN PRN Reason: Cough and congestion Last Admin: 01/03/17 20:21 Dose: 200 mg Ceftriaxone Sodium 2 gm/ (Sodium Chloride) 100 mls @ 100 mls/hr IVPB DAILY [facility] Last Admin: 01/06/17 10:56 Dose: Not Given Pantoprazole Sodium (Protonix Ec Tab) 40 mg PO DAILY [facility] Last Admin: 01/06/17 10:55 Dose: Not Given - Labs Labs: 01/06/17 11:11 01/06/17 11:11 - Head Exam Head Exam: ATRAUMATIC, NORMOCEPHALIC - Eye Exam Eye Exam: Normal appearance - ENT Exam ENT Exam: Mucous Membranes Moist - Neck Exam Neck Exam: Normal Inspection - Respiratory Exam Respiratory Exam: Rales - Cardiovascular Exam Cardiovascular Exam: REGULAR RHYTHM - GI/Abdominal Exam GI & Abdominal Exam: Soft, Normal Bowel Sounds - Extremities Exam Extremities Exam: Full ROM, Normal Inspection Assessment and Plan (1) Aspiration pneumonia Assessment & Plan: Continue antibiotics Patient decided to see as outpatient hospice aide for surgery Status: Acute
[2017-01-06] MEDS ORDERED: Propofol 10 mg/ml Inj (20 ML) ONE (14:12)
[2017-01-06] MEDS ORDERED: Potassium Chloride 20 mEq/15 ml LIQ UD PO ONE (15:30)
[2017-01-06] MEDS: guaiFENesin 200 mg/10 ml Syrup UD PO PRN (16:20)
[2017-01-06 16:33] VITALS: RESP 20
--- NOTE | 2017-01-06 22:29 | CP.PCM.PN ---
Subjective - Date & Time of Evaluation Date of Evaluation: 01/06/17 Time of Evaluation: 17:00 - Subjective Subjective: Pt is seen and evaluated, underwent EGD had lot of food particles and had aspiration pnemonia, achalsia, had EGD and was seen by GI Objective - Vital Signs/Intake and Output Vital Signs (last 24 hours): Temp Pulse Resp BP Pulse Ox 98.1 F 68 20 106/66 97 01/06/17 15:00 01/06/17 15:00 01/06/17 15:00 01/06/17 15:00 01/06/17 15:00 Intake and Output: 01/06/17 01/07/17 18:59 06:59 Intake Total 200 400 Output Total 400 Balance 200 0 - Medications Medications: Current Medications Acetaminophen (Tylenol 325mg Tab) 650 mg PO Q6 PRN PRN Reason: Pain, moderate (4-7) Last Admin: 01/05/17 12:57 Dose: 650 mg Albuterol/Ipratropium (Duoneb 3 Mg/0.5 Mg (3 Ml) Ud) 3 ml INH RQ6 [facility] Last Admin: 01/06/17 19:20 Dose: 3 ml Clindamycin HCl (Cleocin) 300 mg PO Q6H [facility] Last Admin: 01/06/17 21:15 Dose: 300 mg Enoxaparin Sodium (Lovenox) 40 mg SC DAILY [facility] Last Admin: 01/06/17 10:55 Dose: Not Given Guaifenesin (Robitussin) 200 mg PO Q4H PRN PRN Reason: Cough and congestion Last Admin: 01/06/17 16:20 Dose: 200 mg Ceftriaxone Sodium 2 gm/ (Sodium Chloride) 100 mls @ 100 mls/hr IVPB DAILY [facility] Last Admin: 01/06/17 10:56 Dose: Not Given Pantoprazole Sodium (Protonix Ec Tab) 40 mg PO DAILY [facility] Last Admin: 01/06/17 10:55 Dose: Not Given - Labs Labs: 01/06/17 11:11 01/06/17 11:11 - Constitutional Appears: No Acute Distress - Head Exam Head Exam: ATRAUMATIC, NORMAL INSPECTION, NORMOCEPHALIC - Eye Exam Eye Exam: EOMI, Normal appearance, PERRL Pupil Exam: NORMAL ACCOMODATION, PERRL - Respiratory Exam Respiratory Exam: Decreased Breath Sounds, Rales, Rhonchi - Cardiovascular Exam Cardiovascular Exam: REGULAR RHYTHM, +S1, +S2. absent: Murmur - GI/Abdominal Exam GI & Abdominal Exam: Soft, Normal Bowel Sounds. absent: Tenderness Assessment and Plan (1) Pleural effusion Status: Acute (2) Pneumonia Status: Acute (3) Achalasia of cardia Assessment & Plan: 26 year old female with h/o achalasia s/p prior pneumatic dilation admitted with RLL pneumonia. 1. Achalasia Plan: -discussed options with the patient including repeat pneumatic dilation and heller myotomy -she would like to pursue an outpatient heller myotomy for more definitive treatment considering her young age -she will follow up in [place] with her previously established GI physician she says -in the interim, would recommend strict aspiration precautions with the HOB at 45 degrees -continue antibiotics for pneumonia Status: Acute
[2017-01-07] MEDS: Albuterol-Ipratrop 3 mg / 0.5 (3 ml) UD INH SCH ×4 (01:14→19:50)
[2017-01-07] MEDS: Enoxaparin 40 mg Syringe SC SCH (10:24)
[2017-01-07] MEDS: Pantoprazole 40 mg EC Tab PO SCH (10:24)
[2017-01-07] MEDS: cefTRIAXone 2 GM in Sodium Chloride 0.9% 100 ML IVPB SCH (10:24)
--- NOTE | 2017-01-07 12:50 | PN ---
DATE: LOCATION: [address] [place] [address] B. SUBJECTIVE: This is a 26-year-old female with upper endoscopy with dilation, balloon dilation due to her achalasia, seen again in rounds today with a complaint of generalized weakness and malaise. The entire chart is reviewed including but not limited to the most recent lab and radiology test results, current and previous medication list, current and previous medical events and the patient somewhat tolerated solid food without nausea or abdominal pain. PHYSICAL EXAMINATION: GENERAL: A 26 years old female. VITAL SIGNS: Afebrile with pulse of 100 and respiratory rate of 20 to 22, with blood pressure of 102/58. HEENT: Shows pale, dry mucoid membrane. Nonicteric sclerae. LUNGS: Few scattered crepitation. Decreased air entry at bases. HEART: Positive S1 and S2. ABDOMEN: Soft. Bowel sounds are present. No mass or organomegaly. No rebound tenderness or guarding. EXTREMITIES: Without edema, clubbing or cyanosis. NEUROLOGIC: No reported neurological deficits, sensory, or motor. IMPRESSION: 1. Peptic ulcer disease. 2. Achalasia, status post balloon dilation. SUGGESTIONS: 1. Continue current management. 2. The patient will need to follow up dilation after 1 to 2 weeks that could be done as an outpatient. Kalin Brand MD
--- NOTE | 2017-01-07 15:02 | RAD ---
HISTORY: f/u pneumonoia COMPARISON: Chest radiographs 01/02/2017. TECHNIQUE: Chest PA and lateral FINDINGS: LUNGS: There persistent right middle and lower lobe infiltrates appreciated, not significantly changed in the interval. No left-sided infiltrate. PLEURA: No significant pleural effusion identified. No pneumothorax apparent. CARDIOVASCULAR: Normal. OSSEOUS STRUCTURES: No significant abnormalities. VISUALIZED UPPER ABDOMEN: Normal. OTHER FINDINGS: None. IMPRESSION: Persistent right middle and lower lobe infiltrates. No signal change or prior chest radiographs 01/02/2017.
[2017-01-07] MEDS ORDERED: Clindamycin 600mg/50ml NS 600 MG/50 ML BAG IVPB SCH (20:30)
--- NOTE | 2017-01-07 22:13 | CP.PCM.PN ---
Subjective - Date & Time of Evaluation Date of Evaluation: 01/07/17 Time of Evaluation: 09:10 - Subjective Subjective: Pt is s/p EGD, infiltrates in lungs, persistent pneumonia and achalasia, on medical management , antibiotics, GI follow up Objective - Vital Signs/Intake and Output Vital Signs (last 24 hours): Temp Pulse Resp BP Pulse Ox 98.2 F 97 H 20 114/78 97 01/07/17 15:00 01/07/17 15:00 01/07/17 15:00 01/07/17 15:00 01/07/17 15:00 Intake and Output: 01/07/17 01/08/17 18:59 06:59 Intake Total 460 Balance 460 - Medications Medications: Current Medications Acetaminophen (Tylenol 325mg Tab) 650 mg PO Q6 PRN PRN Reason: Pain, moderate (4-7) Last Admin: 01/07/17 12:54 Dose: 650 mg Albuterol/Ipratropium (Duoneb 3 Mg/0.5 Mg (3 Ml) Ud) 3 ml INH RQ6 [facility] Last Admin: 01/07/17 19:50 Dose: 3 ml Enoxaparin Sodium (Lovenox) 40 mg SC DAILY [facility] Last Admin: 01/07/17 10:24 Dose: Not Given Guaifenesin (Robitussin) 200 mg PO Q4H PRN PRN Reason: Cough and congestion Last Admin: 01/06/17 16:20 Dose: 200 mg Ceftriaxone Sodium 2 gm/ (Sodium Chloride) 100 mls @ 100 mls/hr IVPB DAILY [facility] Last Admin: 01/07/17 10:24 Dose: 100 mls/hr Clindamycin Phosphate (Cleocin In Normal Saline Addvantage) 600 mg in 50 mls @ 100 mls/hr IVPB Q8H [facility] Pantoprazole Sodium (Protonix Ec Tab) 40 mg PO DAILY [facility] Last Admin: 01/07/17 10:24 Dose: 40 mg - Labs Labs: 01/06/17 11:11 01/06/17 11:11 - Constitutional Appears: No Acute Distress - Head Exam Head Exam: ATRAUMATIC, NORMAL INSPECTION, NORMOCEPHALIC - Eye Exam Eye Exam: EOMI, Normal appearance, PERRL Pupil Exam: NORMAL ACCOMODATION, PERRL - Respiratory Exam Respiratory Exam: Decreased Breath Sounds, Rales, Rhonchi - Cardiovascular Exam Cardiovascular Exam: REGULAR RHYTHM, +S1, +S2. absent: Murmur - GI/Abdominal Exam GI & Abdominal Exam: Soft, Normal Bowel Sounds. absent: Tenderness Assessment and Plan (1) Pleural effusion Status: Acute (2) Pneumonia Assessment & Plan: on medical management , antibiotics, GI follow up Status: Acute (3) Achalasia of cardia Status: Acute
[2017-01-07] MEDS: Clindamycin 600mg/50ml NS 600 MG/50 ML BAG IVPB SCH (23:51)
[2017-01-08] MEDS: Albuterol-Ipratrop 3 mg / 0.5 (3 ml) UD INH SCH ×4 (01:21→19:37)
[2017-01-08] MEDS: Clindamycin 600mg/50ml NS 600 MG/50 ML BAG IVPB SCH ×3 (06:09→22:18)
[2017-01-08] MEDS: cefTRIAXone 2 GM in Sodium Chloride 0.9% 100 ML IVPB SCH (09:37)
[2017-01-08] MEDS: Pantoprazole 40 mg EC Tab PO SCH (09:39)
[2017-01-08] MEDS: Enoxaparin 40 mg Syringe SC SCH (09:39)
--- NOTE | 2017-01-08 14:59 | CP.PCM.PN ---
Subjective - Date & Time of Evaluation Date of Evaluation: 01/08/17 Time of Evaluation: 08:00 - Subjective Subjective: Patient seen and examined Patient complaining of cough Status post dilatation for achalasia Denies fever or chills, denies chest pain Objective - Vital Signs/Intake and Output Vital Signs (last 24 hours): Temp Pulse Resp BP Pulse Ox 98.1 F 100 H 20 104/69 95 01/08/17 07:30 01/08/17 07:30 01/08/17 07:30 01/08/17 07:30 01/08/17 07:30 Intake and Output: 01/08/17 01/08/17 06:59 18:59 Intake Total 860 Output Total 600 Balance 260 - Medications Medications: Current Medications Acetaminophen (Tylenol 325mg Tab) 650 mg PO Q6 PRN PRN Reason: Pain, moderate (4-7) Last Admin: 01/08/17 09:40 Dose: 650 mg Albuterol/Ipratropium (Duoneb 3 Mg/0.5 Mg (3 Ml) Ud) 3 ml INH RQ6 [facility] Last Admin: 01/08/17 13:18 Dose: 3 ml Enoxaparin Sodium (Lovenox) 40 mg SC DAILY [facility] Last Admin: 01/08/17 09:39 Dose: Not Given Guaifenesin (Robitussin) 200 mg PO Q4H PRN PRN Reason: Cough and congestion Last Admin: 01/06/17 16:20 Dose: 200 mg Ceftriaxone Sodium 2 gm/ (Sodium Chloride) 100 mls @ 100 mls/hr IVPB DAILY [facility] Last Admin: 01/08/17 09:37 Dose: 100 mls/hr Clindamycin Phosphate (Cleocin In Normal Saline Addvantage) 600 mg in 50 mls @ 100 mls/hr IVPB Q8H [facility] Last Admin: 01/08/17 14:18 Dose: 100 mls/hr Pantoprazole Sodium (Protonix Ec Tab) 40 mg PO DAILY [facility] Last Admin: 01/08/17 09:39 Dose: 40 mg - Labs Labs: 01/06/17 11:11 01/06/17 11:11 - Head Exam Head Exam: ATRAUMATIC, NORMOCEPHALIC - Eye Exam Eye Exam: Normal appearance - ENT Exam ENT Exam: Mucous Membranes Moist - Neck Exam Neck Exam: Normal Inspection - Respiratory Exam Respiratory Exam: Rales - Cardiovascular Exam Cardiovascular Exam: REGULAR RHYTHM - GI/Abdominal Exam GI & Abdominal Exam: Soft, Normal Bowel Sounds - Extremities Exam Extremities Exam: Normal Inspection Assessment and Plan (1) Aspiration pneumonia Assessment & Plan: Status post dilatation for aclasia Continue antibiotics Follow-up chest x-ray Stable from pulmonary standpoint Status: Acute
--- NOTE | 2017-01-08 15:13 | CP.PCM.PN ---
Subjective - Date & Time of Evaluation Date of Evaluation: 01/08/17 Time of Evaluation: 20:00 - Subjective Subjective: afebrile, os coughing, wheezing, continue on antibiotics most likely aspiration pnemonia Objective - Vital Signs/Intake and Output Vital Signs (last 24 hours): Temp Pulse Resp BP Pulse Ox 98.1 F 100 H 20 104/69 95 01/08/17 07:30 01/08/17 07:30 01/08/17 07:30 01/08/17 07:30 01/08/17 07:30 Intake and Output: 01/08/17 01/08/17 06:59 18:59 Intake Total 860 Output Total 600 Balance 260 - Medications Medications: Current Medications Acetaminophen (Tylenol 325mg Tab) 650 mg PO Q6 PRN PRN Reason: Pain, moderate (4-7) Last Admin: 01/08/17 09:40 Dose: 650 mg Albuterol/Ipratropium (Duoneb 3 Mg/0.5 Mg (3 Ml) Ud) 3 ml INH RQ6 [facility] Last Admin: 01/08/17 13:18 Dose: 3 ml Enoxaparin Sodium (Lovenox) 40 mg SC DAILY [facility] Last Admin: 01/08/17 09:39 Dose: Not Given Guaifenesin (Robitussin) 200 mg PO Q4H PRN PRN Reason: Cough and congestion Last Admin: 01/06/17 16:20 Dose: 200 mg Ceftriaxone Sodium 2 gm/ (Sodium Chloride) 100 mls @ 100 mls/hr IVPB DAILY [facility] Last Admin: 01/08/17 09:37 Dose: 100 mls/hr Clindamycin Phosphate (Cleocin In Normal Saline Addvantage) 600 mg in 50 mls @ 100 mls/hr IVPB Q8H [facility] Last Admin: 01/08/17 14:18 Dose: 100 mls/hr Pantoprazole Sodium (Protonix Ec Tab) 40 mg PO DAILY [facility] Last Admin: 01/08/17 09:39 Dose: 40 mg - Labs Labs: 01/06/17 11:11 01/06/17 11:11 - Constitutional Appears: No Acute Distress - Head Exam Head Exam: ATRAUMATIC, NORMAL INSPECTION, NORMOCEPHALIC - Eye Exam Eye Exam: EOMI, Normal appearance, PERRL Pupil Exam: NORMAL ACCOMODATION, PERRL - Respiratory Exam Respiratory Exam: Clear to Ausculation Bilateral, NORMAL BREATHING PATTERN - Cardiovascular Exam Cardiovascular Exam: REGULAR RHYTHM, +S1, +S2. absent: Murmur - GI/Abdominal Exam GI & Abdominal Exam: Soft, Normal Bowel Sounds. absent: Tenderness - Neurological Exam Neurological Exam: Alert, Awake, CN II-XII Intact, Normal Gait, Oriented x3 Assessment and Plan (1) Pleural effusion Status: Acute (2) Pneumonia Status: Acute (3) Achalasia of cardia Status: Acute
--- NOTE | 2017-01-08 19:04 | PN ---
DATE: 01/08/2017 LOCATION: 352, bed B. SUBJECTIVE: This is a 26 years old female, seen and examined in rounds with complaint of generalized weakness and malaise with mild dysphagia and dyspepsia with underlying diagnosis of achalasia. The patient is post upper endoscopy with dilation. The entire chart is reviewed including but not limited to the most recent lab and radiology test results, current and the previous medication list, current and the previous medical events. The patient had much less intermittent period of dry cough. PHYSICAL EXAMINATION: GENERAL: A 26 years old female. VITAL SIGNS: Afebrile with heart rate of 96, respiratory rate 20 to 22, blood pressure 108/66. HEENT: Shows pale, dry oral mucous membrane. Nonicteric sclerae. LUNGS: Few scattered crepitation. Decreased air entry at bases. HEART: Positive S1 and S2 with increased rate. ABDOMEN: Soft with slight distention and mild generalized tenderness. No mass or organomegaly. No rebound tenderness or guarding. EXTREMITIES: Without significant clubbing, cyanosis, or edema. NEUROLOGIC: No reported neurological deficits, sensory or motor. IMPRESSION: 1. Achalasia. 2. Peptic ulcer disease. 3. Status post balloon dilation. PLAN: 1. The patient will need followup balloon dilation, pneumatic dilation then Heller myotomy as needed, that could be done as outpatient. Further recommendation to follow. 2. Cancer markers. 3. Sectional abdominal and pelvic CAT scan. Kalin Brand MD
[2017-01-09] MEDS: Albuterol-Ipratrop 3 mg / 0.5 (3 ml) UD INH SCH ×3 (01:23→13:36)
[2017-01-09] MEDS: Clindamycin 600mg/50ml NS 600 MG/50 ML BAG IVPB SCH (06:41)
--- NOTE | 2017-01-09 06:54 | CON ---
DATE: 01/05/[address] Brand [address] Dr. Yadiel Carlisle. REASON FOR CONSULTATION: I was called by Dr. Orestes Cotto himself for GI consultation, not by any other [employer] product consultant for the above-mentioned patient. The patient was seen and fully examined on 01/05/2017 as requested by the admitting medical staff. The entire chart is reviewed including, but not limited to the most recent lab and radiology study results, current and the previous medication list, current and the previous medical events, allergy to medication list, as well as all the available current and the previous medical records. Case was discussed with the staff at length. HISTORY OF PRESENT ILLNESS: This is a 26-year-old female who was admitted to the hospital with recurrent episode of productive cough,dysphagia, dyspepsia, poor oral intake with intermittent period of shortness of breath with chills, but no reported active breathing, no chest pain or palpitation. PAST MEDICAL HISTORY: Not significant. FAMILY HISTORY: Unknown. SOCIAL HISTORY: Denied any recent history of cigarette smoking or alcohol intake. CURRENT MEDICATION: Medication list post admission is seen. ALLERGIES TO MEDICATIONS: UNCLEAR. LABORATORY DATA: After being admitted to the hospital, initial blood workup showed leukocytosis of 11.7 with low potassium at 3.5 with low creatinine of 0.5. Chest x-ray at the time of admission showed right-sided pneumonia. Workup post admission showed evidence of possible achalasia. PHYSICAL EXAMINATION: GENERAL: A 26-year-old female, awake, alert and oriented. VITAL SIGNS: Afebrile at the time she was seen by me with pulse of 82, respiratory rate 20-22, and blood pressure 116/64. HEENT: Showed pale dry oral mucoid membranes. Nonicteric sclerae. LYMPH NODES: No lymphadenitis or no lymphadenopathy. LUNGS: Scattered crepitations, decreased air entry, excessively at the right base. No rales, but positive for crepitations bilaterally. HEART: Positive S1 and S2. ABDOMEN: Soft with mild tenderness. No mass or organomegaly. No rebound tenderness or guarding. EXTREMITIES: Without edema, clubbing or cyanosis. NEUROLOGIC: No reported new neurological deficits, sensory or motor. IMPRESSION: 1. Dysphagia, mainly involving liquids rather solid diet, with possible achalasia. 2. Pneumonia, probably aspiration pneumonia. SUGGESTIONS: 1. Agree with your plan. 2. Endoscopic evaluation of the upper GI tract for potential dilation, which apparently the patient was seen by another field service poultry technician in previous outpatient visits for such episodes of achalasia. 3. IV antibiotics. 4. Proton pump inhibitors IV. 5. Upper endoscopy with balloon dilation as needed. 6. Further recommendation to follow pending the patient's clinical stability. However, if there is progressive improvement post-dilation, then surgery is to be offered to the patient. Thank you for letting me to participate in your patient's case management. Further recommendation to follow post-dilation. Kalin Brand MD cc: Kalin Brand MD
[2017-01-09 07:34] LABS: EOS # 0.4 K/uL (0.0-0.7); LYMPH # 1.6 K/uL (1.0-4.3); MONO # 0.5 K/uL (0.0-0.8)
[2017-01-09 07:45] LABS: BASO % 0.7 % (0.0-2.0); EOS % 5.1 % (0.0-4.0); LYMPH % 20.8 % (20.0-40.0); MEAN CELL VOLUME 86.7 fL (81.0-99.0); MEAN CORPUSCULAR HEMOGLOBIN 29.5 pg (27.0-31.0); MEAN PLATELET VOLUME 8.7 fL (7.2-11.7); MONO % 6.9 % (0.0-10.0); WHITE BLOOD COUNT 7.5 K/uL (4.8-10.8)
[2017-01-09 07:52] LABS: CHLORIDE 96 mmol/L (98-107); POTASSIUM 3.6 mmol/L (3.6-5.2); SODIUM 135 mmol/L (132-148)
[2017-01-09 07:54] LABS: GFR AFRICAN-AMERICAN > 60
[2017-01-09 07:55] LABS: BLOOD UREA NITROGEN 4 mg/dL (7-17); CALCIUM 9.1 mg/dl (8.6-10.4); CARBON DIOXIDE 28 mmol/L (22-30); GLUCOSE,RANDOM 80 mg/dL (65-105)
[2017-01-09] MEDS: cefTRIAXone 2 GM in Sodium Chloride 0.9% 100 ML IVPB SCH (09:58)
[2017-01-09] MEDS: Enoxaparin 40 mg Syringe SC SCH (09:58)
[2017-01-09] MEDS: Pantoprazole 40 mg EC Tab PO SCH (09:58)
--- NOTE | 2017-01-09 14:39 | CP.PCM.PN ---
Subjective - Date & Time of Evaluation Date of Evaluation: 01/09/17 Time of Evaluation: 10:40 - Subjective Subjective: Patient seen today , states feels better, denies any sob , headache, fever, chills, abdominal pain , c/o productive cough a febrile Objective - Vital Signs/Intake and Output Vital Signs (last 24 hours): Temp Pulse Resp BP Pulse Ox 97.5 F L 90 20 102/66 98 01/09/17 08:25 01/09/17 08:25 01/09/17 08:25 01/09/17 08:25 01/09/17 08:25 Intake and Output: 01/09/17 01/09/17 06:59 18:59 Intake Total 650 460 Balance 650 460 - Medications Medications: Current Medications Acetaminophen (Tylenol 325mg Tab) 650 mg PO Q6 PRN PRN Reason: Pain, moderate (4-7) Last Admin: 01/08/17 09:40 Dose: 650 mg Albuterol/Ipratropium (Duoneb 3 Mg/0.5 Mg (3 Ml) Ud) 3 ml INH RQ6 [facility] Last Admin: 01/09/17 13:36 Dose: 3 ml Enoxaparin Sodium (Lovenox) 40 mg SC DAILY [facility] Last Admin: 01/09/17 09:58 Dose: Not Given Guaifenesin (Robitussin) 200 mg PO Q4H PRN PRN Reason: Cough and congestion Last Admin: 01/06/17 16:20 Dose: 200 mg Ceftriaxone Sodium 2 gm/ (Sodium Chloride) 100 mls @ 100 mls/hr IVPB DAILY [facility] Last Admin: 01/09/17 09:58 Dose: 100 mls/hr Clindamycin Phosphate (Cleocin In Normal Saline Addvantage) 600 mg in 50 mls @ 100 mls/hr IVPB Q8H [facility] Last Admin: 01/09/17 06:41 Dose: 100 mls/hr Pantoprazole Sodium (Protonix Ec Tab) 40 mg PO DAILY [facility] Last Admin: 01/09/17 09:58 Dose: 40 mg - Labs Labs: 01/09/17 07:09 01/09/17 07:09 Assessment and Plan - Assessment and Plan (Free Text) Assessment: 26 yr old female with hx of achlasia admitted for pneumonia , Status post dilatation for aclasia Pt treated with neb. and IV antibiotics, clinically improved D/W Dr. Martinez Continue antibiotics x 6 more days and stable from pulmonary standpoint seen by Dr. Carlisle today, stable for discharge home today and f/u with Dr. Carlisle office in 1 week Discharge plan discussed with patient who understands and agrees with plan Patient instructed to f/u with her GI at [facility] fo rf/u for achlasia
[2017-01-09] MEDS ORDERED: Influenza Vaccine 60 mcg/0.5 mL SYR (4YR UP) IM ONE (15:41)
[2017-01-09 16:04] VITALS: BP 101/66; PULSE 94; TEMP 97.3; O2SAT 95
--- NOTE | 2017-01-09 22:48 | CP.PCM.DIS ---
Provider - Provider Date of Admission: 01/04/17 14:25 Attending physician: Yadiel Carlisle MD Time Spent in preparation of Discharge (in minutes): 45 Diagnosis - Discharge Diagnosis (1) Pleural effusion Status: Acute (2) Pneumonia Status: Acute (3) Achalasia of cardia Status: Acute Hospital Course - Lab Results Lab Results: Micro Results 01/02/17 09:30 Blood Blood Culture - Final NO GROWTH AFTER 5 DAYS 01/02/17 09:30 Blood Gram Stain - Final TEST NOT PERFORMED 01/02/17 10:00 Blood Blood Culture - Final NO GROWTH AFTER 5 DAYS 01/02/17 10:00 Blood Gram Stain - Final TEST NOT PERFORMED Most Recent Lab Values WBC 7.5 K/uL (4.8-10.8) 01/09/17 07:09 RBC 3.92 Mil/uL (3.80-5.20) 01/09/17 07:09 Hgb 11.6 g/dL (11.0-16.0) 01/09/17 07:09 Hct 34.0 % (34.0-47.0) 01/09/17 07:09 MCV 86.7 fL (81.0-99.0) 01/09/17 07:09 MCH 29.5 pg (27.0-31.0) 01/09/17 07:09 MCHC 34.0 g/dL (33.0-37.0) 01/09/17 07:09 RDW 13.0 % (11.5-14.5) 01/09/17 07:09 Plt Count 351 K/uL (130-400) 01/09/17 07:09 MPV 8.7 fL (7.2-11.7) 01/09/17 07:09 Neut % (Auto) 66.5 % (50.0-75.0) 01/09/17 07:09 Lymph % (Auto) 20.8 % (20.0-40.0) 01/09/17 07:09 [place] % (Auto) 6.9 % (0.0-10.0) 01/09/17 07:09 Eos % (Auto) 5.1 % (0.0-4.0) H 01/09/17 07:09 Baso % (Auto) 0.7 % (0.0-2.0) 01/09/17 07:09 Neut # 5.0 K/uL (1.8-7.0) 01/09/17 07:09 Lymph # 1.6 K/uL (1.0-4.3) 01/09/17 07:09 [place] # 0.5 K/uL (0.0-0.8) 01/09/17 07:09 Eos # 0.4 K/uL (0.0-0.7) 01/09/17 07:09 Baso # 0.0 K/uL (0.0-0.2) 01/09/17 07:09 Neutrophils % (Manual) 88 % (50-75) H 01/03/17 07:08 Lymphocytes % (Manual) 9 % (20-40) L 01/03/17 07:08 Monocytes % (Manual) 3 % (0-10) 01/03/17 07:08 Platelet Estimate Normal (NORMAL) 01/03/17 07:08 Hypochromasia (manual) Slight 01/03/17 07:08 Poikilocytosis (manual Slight 01/03/17 07:08 Anisocytosis (manual) Slight 01/03/17 07:08 Sodium 135 mmol/L (132-148) 01/09/17 07:09 Potassium 3.6 mmol/L (3.6-5.2) 01/09/17 07:09 Chloride 96 mmol/L (98-107) L 01/09/17 07:09 Carbon Dioxide 28 mmol/L (22-30) 01/09/17 07:09 Anion Gap 15 (10-20) 01/09/17 07:09 BUN 4 mg/dL (7-17) L 01/09/17 07:09 Creatinine 0.5 mg/dL (0.7-1.2) L 01/09/17 07:09 Est GFR ( Amer) > 60 01/09/17 07:09 Est GFR (Non-Af Amer) > 60 01/09/17 07:09 Random Glucose 80 mg/dL (65-105) 01/09/17 07:09 Calcium 9.1 mg/dl (8.6-10.4) 01/09/17 07:09 Total Bilirubin 2.0 mg/dL (0.2-1.3) H 01/02/17 09:39 AST 25 U/L (14-36) 01/02/17 09:39 ALT 21 U/L (9-52) 01/02/17 09:39 Alkaline Phosphatase 85 U/L (38-126) 01/02/17 09:39 Total Protein 9.7 g/dL (6.3-8.3) H 01/02/17 09:39 Albumin 4.6 g/dL (3.5-5.0) 01/02/17 09:39 Globulin 5.0 gm/dL (2.2-3.9) H 01/02/17 09:39 Albumin/Globulin Ratio 0.9 (1.0-2.1) L 01/02/17 09:39 Urine Color Yellow (YELLOW) 01/02/17 12:39 Urine Clarity Clear (Clear) 01/02/17 12:39 Urine pH 6.0 (5.0-8.0) 01/02/17 12:39 Ur Specific [place] 1.008 (1.003-1.030) 01/02/17 12:39 Urine Protein Negative mg/dL (NEGATIVE) 01/02/17 12:39 Urine Glucose (UA) Normal mg/dL (Normal) 01/02/17 12:39 Urine Ketones Negative mg/dL (NEGATIVE) 01/02/17 12:39 Urine Blood Negative (NEGATIVE) 01/02/17 12:39 Urine Nitrate Negative (NEGATIVE) 01/02/17 12:39 Urine Bilirubin Negative (NEGATIVE) 01/02/17 12:39 Urine Urobilinogen 2.0 mg/dL (0.2-1.0) H 01/02/17 12:39 Ur Leukocyte Esterase Trace Kalyn/uL (Negative) 01/02/17 12:39 Urine WBC (Auto) 4 /hpf (0-5) 01/02/17 12:39 Urine RBC (Auto) 2 /hpf (0-3) 01/02/17 12:39 Ur Squamous Epith Cells 1 /hpf (0-5) 01/02/17 12:39 Urine HCG, Qual Negative (NEGATIVE) 01/06/17 07:35 HIV 1&2 Antibody Screen Negative (NEGATIVE) 01/06/17 11:11 Influenza Typ A,B (EIA) Negative for flu a/b (NEGATIVE) 01/02/17 10:49 Ur L.pneumophila Ag Negative (NEGATIVE) 01/04/17 17:00 Mycoplasma pneumon IgM Negative (NEGATIVE) 01/04/17 17:00 - Hospital Course Hospital Course: pt seen and examined by me today , is for discharge today, afebrile, less cough , less shortness of breath she needs 6 days of antibiotics augmentin and out pateint follow up with me 26 yr old female with hx of achlasia admitted for pneumonia , Status post dilatation for aclasia Pt treated with neb. and IV antibiotics, clinically improved D/W Dr. Martinez Continue antibiotics x 6 more days and stable from pulmonary standpoint stable for discharge home today and f/u with me in office in 1 week Discharge plan discussed with patient who understands and agrees with plan Patient instructed to f/u with her GI at [facility] rf/u for achlasia Discharge Exam - Head Exam Head Exam: ATRAUMATIC, NORMAL INSPECTION, NORMOCEPHALIC - Eye Exam Eye Exam: Normal appearance - Respiratory Exam Respiratory Exam: Clear to PA & Lateral, NORMAL BREATHING PATTERN - Cardiovascular Exam Cardiovascular Exam: REGULAR RHYTHM, +S1, +S2 - GI/Abdominal Exam GI & Abdominal Exam: Normal Bowel Sounds - Neurological Exam Neurological exam: Alert, CN II-XII Intact, Normal Gait, Oriented x3, Reflexes Normal - Psychiatric Exam Psychiatric exam: Normal Affect, Normal Mood Discharge Plan - Discharge Medications Prescriptions: Nebulizer Accessories [A.i.r.s. Nebulizer] 1 each MC Q6 30 Days kit Amoxicillin/Clavulanate [Augmentin 875 MG-125 MG] 1 tab PO Q12 #14 tab Lactobacillus Acidophilus [Bacid Acidophilus] 1 cap PO HS #7 cap Albuterol/Ipratropium [Duoneb 3 mg/0.5 mg (3 ml) UD] 3 ml INH RQ6 30 Days neb guaiFENesin [Robitussin] 200 mg PO Q4H PRN #480 udc PRN Reason: Cough And Congestion - Follow Up Plan Condition: GOOD Disposition: HOME/ ROUTINE Instructions: Albuterol (By breathing), Guaifenesin (By mouth), Amoxicillin/ Clavulanate Potassium (By mouth), Probiotic (By mouth), Pleural Effusion (DC), Pneumonia (DC) Additional Instructions: Please f/u with Dr. Carlisle office in 1 week-( ) for follow up care - need repeat cxr after antibiotics please f/u with GI MD in [place] [facility] for f/u up care for achlasia continue medication as per med. rec. Referrals: Yadiel Carlisle MD [Staff Provider] -
== END 2017-01-09 16:53 | disposition home or self-care (01) | DRG 89 ==
LOC: C.ER 08:58 → C.9E 12:10 → C.3T 12:35 → OBSVTOIN 01-04 14:25
PROVIDERS: ADMIT Internal Medicine; ATTEND Internal Medicine
PROC: 0DJ08ZZ Inspection of Upper Intestinal Tract, Via Natural or Artificial Opening Endoscopic (ICD-10-PCS; principal; 2017-01-06 14:08)
DX: J18.9 Pneumonia, unspecified organism (principal); J90 Pleural effusion, not elsewhere classified; K22.0 Achalasia of cardia; K21.0 Gastro-esophageal reflux disease with esophagitis; Z68.1 Body mass index [BMI] 19.9 or less, adult